=== PATIENT | female | born 1955 | race Caucasian/White ===

== ENCOUNTER 2017-05-11 12:55 | Emergency (ER) | payer OTHER ==
[2017-05-11 13:18] VITALS: BP 164/86
--- NOTE | 2017-05-11 13:31 | UC ---
Throat Pain/Nasal Mark HPI - HPI Summary HPI Summary: Nine days of productive cough, sinus pressure in frontal and right side of face. fefver 99.3F - History of Current Complaint Chief Complaint: UCRespiratory Stated Complaint: SINUS COMPLAINT Time Seen by Provider: 05/11/17 12:59 Hx Obtained From: Patient Onset/Duration: Gradual Onset, Lasting Weeks Severity: Moderate Cough: Nonproductive Associated Signs & Symptoms: Positive: Hoarseness, Sinus Discomfort, Nasal Discharge, Fever - Epiglottits Risk Factors Epiglottis Risk Factors: Negative - Allergies/Home Medications Allergies/Adverse Reactions: Allergies Allergy/AdvReac Type Severity Reaction Status Date / Time Sulfa Antibiotics Allergy Diarrhea Verified 05/11/17 13:03 Home Medications: Home Medications Biotin 2,500 mcg PO DAILY 05/11/17 [History Confirmed 05/11/17] Calcium & Phosphorus W/ Vitami [Citracal+D3 250-107-500 mg-mg-Unit] 1 chw PO DAILY 05/11/17 [History Confirmed 05/11/17] Cetirizine* [ZyrTEC 10 MG TAB*] 10 mg PO DAILY 05/11/17 [History Confirmed 05/11] Cranberry (Vaccinium Macrocarp [Cranberry] 425 mg PO DAILY 05/11/17 [History Confirmed 05/11/17] Cyclobenzaprine TAB* [Flexeril 10 MG TAB*] 10 mg PO BEDTIME 05/11/17 [History Confirmed 05/11/17] Cyclosporine 0.05% OPHTH (NF) [Restasis 0.05% OPHTH] 1 drop BOTH EYES BID [History Confirmed 05/11/17] Digestive Enzymes [Digestive Enzyme] 1 cap PO BID 05/11/17 [History Confirmed ] Estradiol VAG CM (NF) [Estrace VAG CM (NF)] 0.5 applic VAGINAL .TWO TIMES A WEEK 05/11/17 [History Confirmed 05/11/17] Evening Newton Oil [Evening Newton Oil 500 mg] 500 mg PO DAILY 05/11/17 [ History Confirmed 05/11/17] Lactobacillus [Probiotic] 1 cap PO BID 05/11/17 [History Confirmed 05/11/17] Magnesium 200 mg PO BEDTIME 05/11/17 [History Confirmed 05/11/17] Oxymetazoline 0.05% NASAL SPR* [Afrin 0.05% NASAL SPRAY*] 1 spray NASAL Q12H PRN 05/11/17 [History Confirmed 05/11/17] Vulvadenia Cream 1 applic TOPICAL BID 05/11/17 [History] PMH/Surg Hx/FS Hx/Imm Hx Previously Healthy: Yes - Surgical History Surgical History: Yes Surgery Procedure, Year, and Place: uretral prolapse. uterine ablation. spinal decompression. breast reduction - Family History Known Family History: Negative: Respiratory Disease - Social History Occupation: Employed Full-time Lives: With Family Alcohol Use: Occasionally Substance Use Type: None Smoking Status (MU): Never Smoked Tobacco - Immunization History Most Recent Influenza Vaccination: 2017 Review of Systems Constitutional: Fever Skin: Negative Eyes: Negative ENT: Sinus Congestion, Sinus Pain/Tenderness Respiratory: Cough Cardiovascular: Negative Gastrointestinal: Negative Genitourinary: Negative Motor: Negative Neurovascular: Negative Musculoskeletal: Negative Neurological: Negative Psychological: Negative Is Patient Immunocompromised?: No All Other Systems Reviewed And Are Negative: Yes Physical Exam Triage Information Reviewed: Yes Appearance: Well-Appearing, No Pain Distress, Well-Nourished Vital Signs: Initial Vital Signs Temp 99.8 F 05/11/17 13:12 Pulse 102 05/11/17 13:12 Resp 20 05/11/17 13:12 BP 164/86 05/11/17 13:12 Pulse Ox 99 05/11/17 13:12 Vital Signs Reviewed: Yes Eye Exam: Normal ENT: Positive: Nasal congestion, Nasal drainage, TM bulging, TM dull Dental Exam: Normal Neck exam: Normal Neck: Positive: Supple, Nontender, No Lymphadenopathy Respiratory Exam: Other - COUGH Respiratory: Positive: Chest non-tender, Lungs clear, Normal breath sounds, No respiratory distress, No accessory muscle use Cardiovascular Exam: Normal Cardiovascular: Positive: RRR, No Murmur, Pulses Normal Abdominal Exam: Normal Musculoskeletal Exam: Normal Neurological Exam: Normal Psychological Exam: Normal Skin Exam: Normal Throat Pain/Nasal Course/Dx - Differential Dx/Diagnosis Differential Diagnosis/HQI/PQRI: Pharyngitis, Sinusitis, URI Provider Diagnoses: SINUSITIS; BRONCHITIS Discharge - Discharge Plan Condition: Stable Disposition: HOME Prescriptions: Amoxicillin/Clavulanate TAB* [Augmentin TAB 875*] 875 mg PO BID #20 tab Benzonatate CAP* [Tessalon 100 MG CAP*] 100 mg PO TID PRN #15 cap PRN Reason: Cough Patient Education Materials: Sinusitis (ED), Acute Bronchitis (ED) Referrals: [facility] [Outside]
== END 2017-05-11 13:28 | disposition home or self-care (01) ==
LOC: UCCORT 12:55
DX: J32.9 Chronic sinusitis, unspecified (principal); J40 Bronchitis, not specified as acute or chronic; Z88.2 Allergy status to sulfonamides
CPT/HCPCS: 99202; G0463